=== PATIENT | male | born 1990 | race Two or more races ===

== ENCOUNTER 2022-05-15 19:46 | Emergency (ER) | payer OTHER ==
[~2022-05-15] VITALS: Ht 175.3 cm; Wt 88.5 kg
--- NOTE | 2022-05-15 20:00 | NUR ---
BIBFRIEND. MID STERNAL CHEST PAIN X 2 HRS NON RADIATING INTERMITENT 7/10 FEELS LIKE STERNAL RUB W/ FELING OF SOB. BILAT POSTERIOR EYE PAIN . PT A/OX4. TOLERATING R/A WELL WITH NO RESP DISTRESS. AMBULATORY WITH STEADY GAIT. SAFETY MEASURES IN PLACE.
[2022-05-15] MEDS ORDERED: ASPIRIN 81 MG TAB.CHEW PO ONE (20:30)
--- NOTE | 2022-05-15 20:30 | NUR ---
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
[2022-05-15] MEDS ORDERED: ASPIRIN 81 MG TAB.CHEW ONE (20:35)
--- NOTE | 2022-05-15 20:49 | NUR ---
Royce mcconnell in [facility] - 05/15/22 at 2049 by MADELIN xra
--- NOTE | 2022-05-15 20:49 | NUR ---
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
[2022-05-15 20:56] LABS: BASOPHILS % (AUTO) 0.7 % (0.0-2.0); EOSINOPHILS % (AUTO) 4.7 % (0.0-6.0); HEMATOCRIT 48 % (39-51); LYMPHOCYTES # (AUTO) 1.5 K/uL (0.8-4.8); LYMPHOCYTES % (AUTO) 24.9 % (20.0-44.0); MEAN CORPUSCULAR HGB CONC 33 g/dl (31.0-36.0); MEAN CORPUSCULAR VOLUME 86 fL (80-96); MONOCYTES # (AUTO) 0.5 K/uL (0.1-1.30); MONOCYTES % (AUTO) 8.8 % (2.0-12.0); NEUTROPHILS # (AUTO) 3.8 K/uL (1.8-8.9); NEUTROPHILS % (AUTO) 60.9 % (43.0-81.0); PLATELET COUNT (AUTO) 229 K/uL (150-450); RED BLOOD CELL COUNT(AUTO) 5.62 MIL/uL (4.5-6.0); WHITE BLOOD COUNT (AUTO) 6.2 K/uL (4.3-11.0)
[2022-05-15 21:06] LABS: CALCIUM, SERUM 8.8 mg/dL (8.5-10.1); CARBON DIOXIDE 30 mmol/L (21-32); CHLORIDE 102 mmol/L (98-107); CREATININE 1.2 mg/dL (0.6-1.3); GLUCOSE 106 mg/dL (74-106); POTASSIUM 3.9 mmol/L (3.5-5.1); SODIUM SERUM 140 mmol/L (136-145); UREA NITROGEN, BLOOD 18 mg/dL (7-18)
[2022-05-15 21:20] LABS: ALANINE AMINOTRANSFERASE 55 U/L (12-78); ALKALINE PHOSPHATASE 87 U/L (46-116); ASPARTATE AMINOTRANSFERASE 30 U/L (15-37); BILIRUBIN,DIRECT 0.1 mg/dL (0.0-0.2); BILIRUBIN,TOTAL 0.4 mg/dL (0.2-1.0); TOTAL PROTEIN, SERUM 7.5 g/dL (6.4-8.2)
[2022-05-15] MEDS ORDERED: MAG HYDROX/AL HYDROX/SIMETH 30 ML UDC ONE (23:41)
[2022-05-15] MEDS ORDERED: LIDOCAINE VISCOUS 2% UD 15 ML UDC ONE (23:41)
[2022-05-15 23:52] VITALS: BP 116/70
--- NOTE | 2022-05-15 23:52 | NUR ---
Patient discharged to home in stable condition. Written and verbal after care instructions given. Patient verbalizes understanding of instruction.
[2022-05-16] MEDS ORDERED: LIDOCAINE VISCOUS 2% UD 15 ML UDC MM ONE
[2022-05-16] MEDS ORDERED: MAG HYDROX/AL HYDROX/SIMETH 30 ML UDC PO ONE
== END 2022-05-15 23:52 | disposition home or self-care (01) ==
LOC: ER 19:54
DX: R07.89 Other chest pain (principal); Z91.012 Allergy to eggs
CPT/HCPCS: 36415; 71045-TC; 80048-TC; 80076-TC; 83880; 84484-TC; 85025-TC